=== PATIENT | female | born 1950 | race Caucasian/White ===

== ENCOUNTER 2017-07-26 07:59 | Day surgery (SDC) | payer MEDICARE ==
[2017-07-26] MEDS ORDERED: Sodium Bicarbonate 2.4 MEQ/5 ML ONE (09:07)
[2017-07-26] MEDS ORDERED: Lidocaine 1% PF 5 ML VIAL ONE (09:07)
[2017-07-26 12:51] VITALS: BP 142/59; TEMP 98.6; BMI 29.4
--- NOTE | 2017-07-26 14:29 | ULT ---
ULTRASOUND GUIDED FINE NEEDLE ASPIRATION: Date: 07/26/17 COMPARISON: [facility] dated 07/03/17. FINDINGS: Technically successful fine needle aspiration of a predominantly solid nodule in the mid aspect of t he left thyroid lobe. A total of four 25 gauge fine needle aspirations were performed. There were no immediate or postprocedure complications. TECHNIQUE: Consent was obtained to perform a left thyroid lobe ultrasound guided fine needle aspiration. The la rgest nodule was aspirated under ultrasound guidance. The other nodules were not aspirated given the ir size and their TIRADS score. Those smaller nodules should be followed up in 1 year. Left neck was prepped and draped in the sterile fashion. 1% lidocaine, buffered with sodium bicarbon ate, was used for local anesthesia. Under ultrasound guidance, a 25 gauge needle was used to perform ed a total of four fine needle aspirations. The patient tolerated the procedure well. No immediate o r postprocedure complications. IMPRESSION: Technically successful ultrasound guided fine needle aspiration. POS: [facility]
== END 2017-07-26 09:55 | disposition home or self-care (01) ==
LOC: ULT 07:59 → EDSTATUS 09:00 → ULT 09:55
PROVIDERS: ATTEND Otolaryngology Plastic Surgery within the Head & Neck
PROC: 0G9G3ZX Drainage of Left Thyroid Gland Lobe, Percutaneous Approach, Diagnostic (ICD-10-PCS; principal; 2017-07-26)
DX: E04.2 Nontoxic multinodular goiter (principal); C53.9 Malignant neoplasm of cervix uteri, unspecified; Z88.8 Allergy status to other drugs, medicaments and biological substances; Z79.82 Long term (current) use of aspirin; Z79.899 Other long term (current) drug therapy; Z87.891 Personal history of nicotine dependence
CPT/HCPCS: 10022; 76942; 88173; 88305; J2001

== ENCOUNTER 2017-10-21 07:57 | Outpatient (CLI) | payer MEDICARE, OTHER | END 2017-10-21 07:58 | disposition home or self-care (01) | LOC: BICMAMMO 07:57 | PROVIDERS: ATTEND Obstetrics & Gynecology | DX: Z12.31 Encounter for screening mammogram for malignant neoplasm of breast (principal); Z78.0 Asymptomatic menopausal state; R92.1 Mammographic calcification found on diagnostic imaging of breast; M85.88 Other specified disorders of bone density and structure, other site; Z80.3 Family history of malignant neoplasm of breast; Z85.89 Personal history of malignant neoplasm of other organs and systems | CPT/HCPCS: 77063; 77067; 77080 ==

== ENCOUNTER 2018-10-22 07:39 | Outpatient (CLI) | payer MEDICARE, OTHER | END 2018-10-22 07:40 | disposition home or self-care (01) | LOC: BICMAMMO 07:39 | PROVIDERS: ATTEND Obstetrics & Gynecology | DX: Z12.31 Encounter for screening mammogram for malignant neoplasm of breast (principal); Z80.3 Family history of malignant neoplasm of breast; Z85.9 Personal history of malignant neoplasm, unspecified | CPT/HCPCS: 77063; 77067 ==

== ENCOUNTER 2019-10-26 07:45 | Outpatient (CLI) | payer MEDICARE, OTHER ==
--- NOTE | 2019-10-26 08:27 | MMO ---
Bilateral MAMMO Bilat Screen [facility]. CLINICAL HISTORY: Patient is 69 years old and is seen for screening. The patient has the following family history of breast cancer: sister, at age 50. VIEWS: The views performed were: bilateral craniocaudal with tomosynthesis and bilateral mediolateral oblique with tomosynthesis. FILMS COMPARED: The present examination has been compared to prior imaging studies performed at [facility] on 10/11/2015, 10/17/2016, 10/21/2017 and 10/22/2018. This study has been interpreted with the assistance of computer-aided detection. MAMMOGRAM FINDINGS: There are scattered fibroglandular densities. There are no suspicious masses, suspicious calcifications, or new areas of architectural distortion. IMPRESSION: THERE IS NO MAMMOGRAPHIC EVIDENCE OF MALIGNANCY. A ROUTINE FOLLOW-UP MAMMOGRAM IN 1 YEAR IS RECOMMENDED. THE RESULTS OF THIS EXAM WERE SENT TO THE PATIENT. ACR BI-RADS Category 1 - Negative MAMMOGRAPHY NOTE: 1. A negative mammogram report should not delay a biopsy if a dominant of clinically suspicious mass is present. 2. Approximately 10% to 15% of breast cancers are not detected by mammography. 3. Adenosis and dense breasts may obscure an underlying neoplasm. Reported by: VIVIANE GREGORY MD Electonically Signed: [id number]
--- NOTE | 2019-10-26 08:51 | BD ---
EXAM: DEXA bone density examination HISTORY: 69-year-old postmenopausal female for screening COMPARISON: None FINDINGS: L1--bone mineral density 0.878 g/sq cm; T score -1.0 L2--bone mineral density 0.846 g/sq cm; T score -1.7 L3--bone mineral density 0.978 g/sq cm; T score -1.0 L4--bone mineral density 0.866 g/sq cm; T score -1.8 Total L1-L4--bone mineral density 0.895 g/sq cm; T score -1.4 Left femoral neck--bone mineral density0.728; T score -1.1 Total proximal left femur--bone mineral density 0.895; T score -0.4 IMPRESSION: Osteopenia This patient has a 10 year WHO fracture risk of a major osteoporotic fracture of 11% and of a hip fracture of 1.2%.
--- NOTE | 2019-10-26 09:56 | ULT ---
US Thyroid STANDARD: 10/26/2019 12:00 AM CLINICAL INDICATION: Follow-up thyroid nodule. Negative FNA. COMPARISON: 07/26/2017 FINDINGS: Right and left thyroid lobes are normal in size and echotexture. The right thyroid lobe measures 5.0 cm and the left thyroid lobe measures 4.6cm. Multiple scattered hypoechoic nodules are seen throughout the thyroid lobes. There is a stable hypere choic nodule in the left thyroid lobe measuring 1.2 cm in greatest dimension. This is well-circumscribed and does not contain suspicious calcifications. No cervical lymphadenopathy is noted. IMPRESSION: Stable thyroid nodules. The largest and most suspicious nodule seen in the left thyroid lobe and has been previously biopsied. TIRADS category 3; the largest and most suspicious nodule is less than 1.5 cm in size. Therefore, no follow-up or FNA is recommended per recent recommendations.
== END 2019-10-26 07:46 | disposition home or self-care (01) ==
LOC: BICMAMMO 07:45
PROVIDERS: ATTEND Student in an Organized Health Care Education/Training Program
DX: Z12.31 Encounter for screening mammogram for malignant neoplasm of breast (principal); Z13.820 Encounter for screening for osteoporosis; E04.2 Nontoxic multinodular goiter; M85.80 Other specified disorders of bone density and structure, unspecified site; Z80.3 Family history of malignant neoplasm of breast
CPT/HCPCS: 76536; 77063; 77067; 77080

== ENCOUNTER 2019-11-23 08:07 | Outpatient (CLI) | payer MEDICARE, OTHER ==
--- NOTE | 2019-11-23 10:30 | CT ---
CT PULMONARY LUNG SCAN: Date: 11/23/2019 HISTORY: Nicotine dependence, long-term smoker who quit in 1976. FINDINGS: There are changes of centrilobular emphysema. There are no infiltrative lung changes. No pulmonary no dules are identified. No bronchiectatic lung change or evidence for honeycombing or interstitial fibr otic lung change. A small 2-3 mm interfissural nodule is seen in the major fissure on the left, axial image 106. No mediastinal abnormalities are noted. The visualized liver parenchyma is unremarkable. IMPRESSION: Lung-RADS Category 1 - Negative. Annual follow-up is recommended. POS: [facility]
== END 2019-11-23 08:08 | disposition home or self-care (01) ==
LOC: CT 08:07
DX: Z12.2 Encounter for screening for malignant neoplasm of respiratory organs (principal); Z87.891 Personal history of nicotine dependence
CPT/HCPCS: G0297

== ENCOUNTER 2020-10-28 07:45 | Outpatient (CLI) | payer MEDICARE, OTHER | END 2020-10-28 07:46 | disposition home or self-care (01) | LOC: BICMAMMO 07:45 | PROVIDERS: ATTEND Student in an Organized Health Care Education/Training Program | DX: Z12.31 Encounter for screening mammogram for malignant neoplasm of breast (principal); Z80.3 Family history of malignant neoplasm of breast | CPT/HCPCS: 77063; 77067 ==

== ENCOUNTER 2020-10-28 15:01 | Outpatient (CLI) | payer MEDICARE, OTHER | END 2020-10-28 15:02 | disposition home or self-care (01) | LOC: BICMRI 15:01 | PROVIDERS: ATTEND Anesthesiology Pain Medicine | DX: M47.22 Other spondylosis with radiculopathy, cervical region (principal); M48.02 Spinal stenosis, cervical region | CPT/HCPCS: 72141 ==

== ENCOUNTER 2020-11-28 07:27 | Outpatient (CLI) | payer MEDICARE, OTHER ==
--- NOTE | 2020-11-28 09:26 | CT ---
CT PULMONARY LUNG SCAN: INDICATION: History of a former smoker; quit in December of 1976 of 2 to 2.5 packs per day; history of personal dirk amelie dependence. COMPARISON: CT pulmonary lung scan dated 11/23/2019. FINDINGS: There is mild scattered centrilobular emphysema. No suspicious pulmonary nodule is seen within the right upper lobe, right middle lobe, or right lower lobe. No suspicious pulmonary nodule is seen within the left upper lobe, lingula, or left lower lobe. Ther e is a small calcified granuloma in the left lower lobe that is stable on image 7 of series 3. No suspicious enlarged lymph nodes are evident. There are coronary artery and thoracic aorta calcifi cations. Visualized upper abdomen demonstrates mild fatty infiltration. No definite acute osseous abnormality is evident. IMPRESSION: Lung RADS category 1 - negative. Recommend low-dose CT followup of the thorax in 1 year. POS: [facility]
== END 2020-11-28 07:28 | disposition home or self-care (01) ==
LOC: BICCT 07:27
PROVIDERS: ATTEND Internal Medicine Pulmonary Disease
DX: Z12.2 Encounter for screening for malignant neoplasm of respiratory organs (principal); Z87.891 Personal history of nicotine dependence
CPT/HCPCS: 71271

== ENCOUNTER 2020-11-28 07:29 | Outpatient (CLI) | payer MEDICARE, OTHER ==
--- NOTE | 2020-11-28 09:08 | ULT ---
THYROID ULTRASOUND: HISTORY: Thyroid nodule followup. FINDINGS: Real-time imaging of the thyroid gland was performed. The right lobe measures 1.5 x 1.8 x 5.2 and th e left lobe 1.4 x 2.2 x 5.4 cm. A couple of tiny 2 mm nodules are seen within the right lobe. Withi n the left lobe, the largest is a complex 1.3 x 1.5 cm that by history has previously undergone a fin e needle aspiration. This lesion appears stable as compared to the prior examination. Other smaller nodules are also unchanged. IMPRESSION: Stable thyroid nodules. POS: [facility]
== END 2020-11-28 07:30 | disposition home or self-care (01) ==
LOC: BICULT 07:29
PROVIDERS: ATTEND Otolaryngology Plastic Surgery within the Head & Neck
DX: E04.2 Nontoxic multinodular goiter (principal)
CPT/HCPCS: 76536

== ENCOUNTER 2021-02-15 11:23 | Outpatient (CLI) | payer MEDICARE, OTHER | END 2021-02-15 11:24 | disposition home or self-care (01) | LOC: BICRAD 11:23 | PROVIDERS: ATTEND Anesthesiology Pain Medicine | DX: M54.12 Radiculopathy, cervical region (principal); M43.12 Spondylolisthesis, cervical region; M48.02 Spinal stenosis, cervical region | CPT/HCPCS: 72052 ==

== ENCOUNTER 2021-08-04 11:56 | Emergency (ER) | payer MEDICARE, OTHER ==
[2021-08-04] MEDS ORDERED: Acetaminophen 500 MG TAB ONE (13:29)
== END 2021-08-04 16:29 | disposition home or self-care (01) ==
LOC: ERS 11:56
DX: S42.214A Unspecified nondisplaced fracture of surgical neck of right humerus, initial encounter for closed fracture (principal); I10 Essential (primary) hypertension; W18.30XA Fall on same level, unspecified, initial encounter; Y92.096 Garden or yard of other non-institutional residence as the place of occurrence of the external cause
CPT/HCPCS: 23600

== ENCOUNTER 2021-10-30 07:44 | Outpatient (CLI) | payer MEDICARE, OTHER | END 2021-10-30 07:45 | disposition home or self-care (01) | LOC: BICMAMMO 07:44 | PROVIDERS: ATTEND Student in an Organized Health Care Education/Training Program | DX: Z12.31 Encounter for screening mammogram for malignant neoplasm of breast (principal); Z80.3 Family history of malignant neoplasm of breast | CPT/HCPCS: 77063; 77067 ==

== ENCOUNTER 2022-11-09 07:50 | Outpatient (CLI) | payer MEDICARE | END 2022-11-09 07:51 | disposition home or self-care (01) | LOC: BICMAMMO 07:50 | PROVIDERS: ATTEND Internal Medicine | DX: Z12.31 Encounter for screening mammogram for malignant neoplasm of breast (principal); Z80.3 Family history of malignant neoplasm of breast | CPT/HCPCS: 77063; 77067 ==

== ENCOUNTER 2023-11-14 08:25 | Outpatient (CLI) | payer MEDICARE, OTHER | END 2023-11-14 08:26 | disposition home or self-care (01) | LOC: BICMAMMO 08:25 | PROVIDERS: ATTEND Student in an Organized Health Care Education/Training Program | DX: Z12.31 Encounter for screening mammogram for malignant neoplasm of breast (principal); Z80.3 Family history of malignant neoplasm of breast | CPT/HCPCS: 77063; 77067 ==